=== PATIENT | male | born 1995 | race Caucasian/White ===

== ENCOUNTER 2018-09-12 16:50 | Emergency (ER) | payer BC ==
[~2018-09-12 16:50] MED LIST changes: -PRED20TA6 PO
[2018-09-12 16:55] VITALS: BP 160/92
--- NOTE | 2018-09-12 17:28 | ER Report ---
History and Physical Time Seen By MD: 17:00 Hx. of Stated Complaint: LOW PLATELET COUNT. PETECHAIE AND NOSEBLEEDS SINCE YESTERDAY. HPI/ROS CHIEF COMPLAINT: low platelets, nosebleed HISTORY OF PRESENT ILLNESS: pt has hx of autoimmune hemolytic anemia, itp in 2016, who has had no recent illnesses or trauma, and noted petechiae that began yesterday on arms with expansion today throughout trunk and arms, as well as mild epistaxis. Last episode 90 min ago; epistaxis is mild and easily controlled and not currently present. 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 Pt denies uri symptoms, fever, chills, sob, cp, vomiting, bloody/black stool, hematuria, or other emergent symptoms. REVIEW OF SYSTEMS: Constitutional: No fever, no chills. Eyes: No discharge. ENT: No sore throat. Cardiovascular: No chest pain, no palpitations. Respiratory: No cough, no shortness of breath. Gastrointestinal: No abdominal pain, no vomiting. Genitourinary: No hematuria. Musculoskeletal: No back pain. Skin: above Neurological: No headache. Remainder of the 14 system rev: Yes Allergies: Coded Allergies: milk (Verified Adverse Reaction, Mild, ABDOMINAL PAIN., 12/03/15) Home Meds Discontinued Reported Medications Penicillin V Potassium (PENICILLIN V POTASSIUM) 250 Mg Tablet, PO DAILY PRN for NO SPLEEN 12/03/15 Discontinued Scripts Ondansetron (ZOFRAN ODT) 4 Mg Tab.rapdis, 4 MG PO Q6H PRN for NAUSEA/VOMITING, #20 TAB 0 Refills Prov:AVNI NOVAK MD 12/03/15 Albuterol Sulfate (VENTOLIN HFA) 18 Gm Inh, 2 PUFF INH Q4-6H PRN for WHEEZING, #1 INH 0 Refills Prov:AVNI NOVAK MD 12/03/15 Oseltamivir Phosphate (TAMIFLU) 75 Mg Cap, 75 MG PO BID, #10 CAP 0 Refills Prov:AVNI NOVAK MD 12/03/15 Reviewed Nurses Notes: Yes Old Medical Records Reviewed: Yes Hx Smoking: No Hx Substance Use Disorder: No Constitutional Vital Sign - Last 24 Hours 09/12/18 16:55 Temp 99.6 Pulse 90 Resp 20 B/P (MAP) 160/92 Pulse Ox 96 O2 Delivery Room Air Physical Exam General Appearance: The patient is alert, has no immediate need for airway protection and no signs of toxicity. Eyes: Pupils equal and round no pallor or injection. ENT, Mouth: Mucous membranes are moist. No petechiae Respiratory: There are no retractions, lungs are clear to auscultation. Cardiovascular: Regular rate and rhythm. Gastrointestinal: Abdomen is soft and non tender, no masses, bowel sounds normal. Neurological: alert, oriented, nad Skin: petechiae on trunk, arms, wally flexor surfaces, legs. No active bldg Musculoskeletal: Extremities are nontender, nonswollen and have full range of motion. DIFFERENTIAL DIAGNOSIS: After history and physical exam differential diagnosis was considered for hematologic/oncologic causes of thrombocytopenia. Medical Decision Making ED Course/Re-evaluation ED Course Pt presents with petechiae, mild epistaxis that resolved spontaneously. Findings c/w isolated thrombocytopenia without e/o TTP or pancytopenia. Pt is borderline for meeting admission criteria; I consulted hematology; Dr. Jenkins agreed that pt may meet criteria but reasonable for d/c if he wishes not to be admitted. Pt understands this and he requests discharge. This is not unreasonable; pt administered prednisone 60mg in agreement with Dr. Jenkins; I have called oncology clinic and pt is aware to call tomorrow for f/u. He understands to rtn for any bleeding. Decision to Disposition Date: Sep 12, 2018 Decision to Disposition Time: 17:54 Depart Departure Latest Vital Signs Vital Signs Date Time Temp Pulse Resp B/P (MAP) Pulse Ox O2 Delivery O2 Flow Rate FiO2 09/12/18 16:55 99.6 90 20 160/92 96 Room Air Impression: Primary Impression: Thrombocytopenia Condition: Improved Disposition: HOME OR SELF-CARE New Scripts Prednisone (PREDNISONE) 20 Mg Tablet 60 MG PO QDAY for 3 Days, #9 TAB Prov: ELVIS MERA MD 09/12/18 Patient Instructions: Immune Thrombocytopenia (ED) Additional Instructions: As we discussed; return immediately for concerning or uncontrolled bleed, or any concerns. I have contacted the oncology center, but I also recommend you call in the morning at [phone] for evaluation and repeat blood counts. ELVIS MERA MD Sep 12, 2018 17:28
[2018-09-12] MEDS ORDERED: predniSONE 20 MG TAB PO ONE (17:45)
[2018-09-12] MEDS ORDERED: PRED20TA6 PO (18:02)
== END 2018-09-12 18:23 | disposition home or self-care (01) ==
LOC: ER 16:55
DX: D69.6 Thrombocytopenia, unspecified (principal)
CPT/HCPCS: 99283; J7512

== ENCOUNTER → 2018-09-12 | Outpatient (CLI) | payer BC ==
[~2018-09-12] MED LIST: ALB18R INH; ONDA4TAB PO; OSE75 PO; PENI-22 PO; PRED20TA6 PO
[2018-09-12 16:20] LABS: PLATELET COUNT, AUTOMATED 8 K/uL (150-450)
== END ==
LOC: LAB 15:45
PROVIDERS: ATTEND Internal Medicine Hematology & Oncology
DX: D69.6 Thrombocytopenia, unspecified (principal)
CPT/HCPCS: 36415; 85025

== ENCOUNTER 2018-11-19 08:30 | Outpatient (RCR) | payer BC ==
[2018-09-13 15:11] VITALS: BP 148/95
[2018-09-13 16:02] LABS: PLATELET COUNT, AUTOMATED 12 K/uL (150-450)
--- NOTE | 2018-09-14 22:55 | ONCOLOGY CONSULTATION ---
EVENT DATE: September 13, 2018 CHIEF COMPLAINT ITP. HISTORY OF PRESENT ILLNESS Patient is a 23-year-old male who was seen today as a work-in with recurrent ITP. He was seen in the Emergency Room yesterday and found to have a platelet count of 8000. The remainder of his CBC was normal. He also noted the onset of petechiae and had an episode of epistaxis. He was started on prednisone 60 mg daily last night. Today, he presents and still has petechiae, but no further bleeding. He has noted no hematuria and no purpura. He does complain of fatigue and that his bones have been "achy," but otherwise feels well. He will be graduating in September from the [employer]. HEMATOLOGY HISTORY Patient presents with a history of multiple autoimmune issues beginning in 1999. 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 He was treated with Cellcept as well as Rituxan. He underwent splenectomy in December 2013. He was noted to have neutropenia in 2012 which resolved. He was then diagnosed with ITP in 2015. This was treated with prednisone, Nplate, and Rituxan. ITP has been quiescent since 2016. He also mentions DVT, likely related to previous Port-A-Cath, in 1999 and again in 2013. MEDICAL HISTORY 1. Autoimmune hemolytic anemia. Four episodes occurring in 1999, 2007, 2011 and 2013. 2. ITP, 2015. 3. DVT, 1999 and 2013. 4. Depression. 5. Asthma. SURGICAL HISTORY Splenectomy, December 2013. FAMILY HISTORY Mother had lupus and other autoimmune issues. Maternal grandmother had an unknown cancer. Maternal grandfather had an DE. Brother has hemolytic anemia. SOCIAL HISTORY Patient is single. He has a supportive girlfriend. He will be graduating in September from the [employer] in [employer] and has a job awaiting him at the [employer] in October 2018. He does not smoke cigarettes. He drinks alcohol occasionally. MEDICATIONS Prednisone 60 mg daily. ALLERGIES No known drug allergies. Allergic to MILK. PHYSICAL EXAMINATION VITAL SIGNS: Weight 185.4 pounds. BP 148/85, P 86, R 16, temp 97.9, O2 sat 96%. GENERAL: Patient is a well-developed, well-nourished male in no acute distress. HEAD: Normocephalic, atraumatic. EYES: Sclerae anicteric. MOUTH: Moist mucous membranes. No bleeding evident, although patient "tastes blood" in the back of his throat. NECK: Supple. No adenopathy. LUNGS: Clear bilaterally. CARDIOVASCULAR: Heart rate regular, 86 per minute, without murmur, S3, or S4. ABDOMEN: Soft, nontender, with active bowel sounds. No organomegaly. EXTREMITIES: No edema. NEUROLOGIC: Nonfocal. SKIN: Petechiae over extremities and trunk. LABORATORY CBC today reveals a WBC of 10.2, hemoglobin 16.9, hematocrit 50.7, platelets 12,000. IMPRESSION AND PLAN The patient is a 23-year-old male with a history of autoimmune issues including autoimmune hemolytic anemia (four episodes), neutropenia, deep venous thrombosis, and most recently immune thrombocytopenic purpura, first noted in 2015, now with current immune thrombocytopenic purpura. 1. Immune thrombocytopenic purpura. Patient is very familiar with this. At this point, we will continue prednisone 60 mg daily for the next 10 days. He will be seen again in followup next week for further evaluation. He is planning to be gone for the and then will be graduating from college in September, so we will reevaluate other options with Rituxan and Nplate based on his schedule. CBC will be drawn in [place] over the . 2. Patient is instructed to notify us or present to the Emergency Room if he develops further bleeding or excessive bruising. 3. Follow up with Dr. Epps in one week for continued care. MIGUEL
[2018-09-20 11:37] VITALS: BP 148/84
[2018-09-20 12:21] LABS: PLATELET COUNT, AUTOMATED 17 K/uL (150-450)
[2018-09-22 15:17] LABS: PLATELET COUNT, AUTOMATED 28 K/uL (150-450)
--- NOTE | 2018-09-22 21:56 | ONCOLOGY FOLLOW UP NOTE ---
EVENT DATE: September 22, 2018 REASON FOR FOLLOWUP 1. History of autoimmune hemolytic anemia. 2. ITP. 3. History of recurrent DVT. INTERIM HISTORY Nixon returns to clinic for a followup visit today. Since his initial visit, he has been taking prednisone daily at home. He has had no further episodes of epistaxis. His petechiae are improving, and he has had no new bruising. He reports no melena, hematochezia, or hematuria. He is currently studying for [employer]. The prednisone has caused some insomnia which has actually been helpful for his studying. He has had followup blood drawn, and he is here to review the results. PAST MEDICAL HISTORY 1. History of autoimmune hemolytic anemia, four episodes occurring in 1999, 2007, 2011, and 2013. 2. ITP diagnosed in 2015. 3. History of DVT in 1999 and 2013. 4. Depression. 5. History of asthma. PAST SURGICAL HISTORY Status post splenectomy in December 2013. CURRENT MEDICATIONS Prednisone 60 mg p.o. daily. SOCIAL HISTORY Patient is single. He is attending [employer] and will be graduating in September. He has a girlfriend. He does not smoke and drinks only occasionally. FAMILY HISTORY There is a history of systemic lupus erythematosus in his mother. His maternal grandmother had an unknown cancer. His maternal grandfather had a [place]. His brother has hemolytic anemia, remarkably. VITAL SIGNS Temperature is 98.8, blood pressure 166/92, heart rate is 100, respirations 14, oxygen saturation is 92% on room air. PHYSICAL EXAMINATION GENERAL: Patient is alert and oriented times three, no apparent distress, sitting in the exam room chair. He appears quite healthy. He is in good spirits. HEENT: Anicteric sclerae. NEUROLOGIC: Grossly nonfocal, and his gait is normal. SKIN: No concerning rash or lesion. Petechiae are barely visible. EXTREMITIES: No edema, clubbing, or cyanosis. There is no erythema or tenderness to palpation. LABORATORY STUDIES Unfortunately, his initial CBC has clotted today. Labs are being redrawn. ASSESSMENT AND PLAN 1. 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 I had a good visit with Nixon today. We spent time reviewing his remarkable hematologic history. He has received multiple modalities of treatment for both his history of autoimmune hemolytic anemia as well as idiopathic thrombocytopenic purpura. Most recently, he had presented with a single digit platelet count, and he was appropriately started on prednisone. His platelet count has started to rise, and his bleeding symptoms have improved. His labs from today, unfortunately, will need to be redone, but we will let him know of these results. We spent time discussing his experience to date with prednisone and that the utility of the drug has been somewhat variable per his history. He does not like being on the prednisone for the most part, and he has had a favorable response to rituximab in the past. I have recommended that he strongly consider receiving four weekly doses of rituximab in an effort to get him off of the prednisone and to try to hold his idiopathic thrombocytopenic purpura under control as had been the case before. Nixon strongly favors this option as well. Orders will be placed for the rituximab to start as soon as possible. He is beginning a new job at the beginning of the year 2019. 2. We moved on to discuss the possibility of an underlying antiphospholipid antibody syndrome. With his history of recurrent thrombosis as well as idiopathic thrombocytopenic purpura and autoimmune hemolytic anemia, this certainly remains a possibility. He does not have any other rheumatologic diagnoses to date, but his mother does have a history of lupus, and his brother has a history of hemolytic anemia, remarkably. We will run a workup for antiphospholipid syndrome, and I have also recommended that he have a repeat HIV test done. He agrees to all of this. 3. He will continue to have followup here with frequency depending on his platelet count. He will likely be able to begin his rituximab infusions in the next two weeks. I spent a total of 30 minutes of time face to face with the patient today, and 25 minutes of this were spent in direct counseling and coordination of care. MIGUEL
[2018-09-24 14:11] VITALS: BP 146/104
[2018-10-01 10:59] VITALS: BP 156/105
[2018-10-01] MEDS: ACETAMINOPHEN 325 MG TAB PO PRN (11:27)
[2018-10-01] MEDS: LIDOCAINE/SOD BICARB 8.4% SYR ID PRN (11:28)
--- NOTE | 2018-10-02 16:20 | ONCOLOGY FOLLOW UP NOTE ---
EVENT DATE: October 01, 2018 CHIEF COMPLAINT Followup for ITP. HISTORY OF PRESENT ILLNESS Patient is a 23-year-old male who was seen today in followup for known ITP. He also has a history of autoimmune hemolytic anemia as well as recurrent DVT. He presents for his first cycle of rituximab, and the plan is to treat him weekly for four cycles. He continues on prednisone 60 mg daily. He is struggling some with mood changes and mild insomnia, but overall is managing fairly well. Workup for antiphospholipid antibody syndrome was negative. HEMATOLOGY HISTORY Patient presents with a history of multiple autoimmune issues beginning in 1999. 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 He was treated with Cellcept as well as Rituxan. He underwent splenectomy in December 2013. He was noted to have neutropenia in 2012 which resolved. He was then diagnosed with ITP in 2015. This was treated with prednisone, Nplate, and Rituxan. ITP has been quiescent since 2015. He has also had two episodes of DVT, likely related to previous Port-A-Cath, in 1999 and again in 2013. MEDICAL HISTORY 1. Autoimmune hemolytic anemia. Four episodes occurring in 1999, 2007, 2011 and 2013. 2. ITP, 2015. 3. DVT, 1999 and 2013. 4. Depression. 5. Asthma. SURGICAL HISTORY Splenectomy, December 2013. FAMILY HISTORY Mother had lupus and other autoimmune issues. Maternal grandmother had an unknown cancer. Maternal grandfather had an MA. Brother has hemolytic anemia. SOCIAL HISTORY Patient is single. He has a supportive girlfriend. He will be graduating in September from the [employer] in [employer] and has a job awaiting him at the [employer] in October 2018. He does not smoke cigarettes. He drinks alcohol occasionally. MEDICATIONS Prednisone 60 mg daily. ALLERGIES No known drug allergies. Allergic to MILK. REVIEW OF SYSTEMS A 12-point review of systems is performed and is negative except as stated above. He has had no recent petechiae, bleeding, or bruising. PHYSICAL EXAMINATION VITAL SIGNS: Weight 83.1 kg. BP 156/105, P 88, R 16, temp 97.6. GENERAL: Patient is a well-developed, well-nourished male in no acute distress. HEAD: Normocephalic, atraumatic. EYES: Sclerae anicteric. MOUTH: Moist mucous membranes. LUNGS: Clear bilaterally. CARDIOVASCULAR: Heart rate regular, 88 per minute, without murmur, S3, or S4. EXTREMITIES: No edema. Resolving bruising noted on lower extremities. NEUROLOGIC: Nonfocal. SKIN: No petechiae or further bruising. LABORATORY CBC today reveals a WBC of 17.3, hemoglobin 15.9, hematocrit 48.6, platelets 441,000. CMP is within normal limits. IMPRESSION AND PLAN The patient is a 23-year-old male with recent exacerbation of immune thrombocytopenic purpura. He also has a history of autoimmune hemolytic anemia as well as deep venous thrombosis. 1. Immune thrombocytopenic purpura. Rituxan 375 mg/m2 IV today. He will receive this weekly for four total treatments. He continues on prednisone 60 mg daily. As his platelet count has increased significantly from 28,000 to 441,000, will decrease prednisone to 50 mg daily. CBC will be checked with each treatment for further steroid reduction pending results. 2. ? Glover syndrome. Dr. Epps had considered possible Glover syndrome due to his hemolytic anemia, ITP, and clotting. However, workup for antiphospholipid antibody syndrome was negative. 3. Blood pressure. Blood pressure today is elevated. He states that this has been worked up previously. He finds that it is "always high" in a clinic situation. Will continue to monitor. 4. Follow up in one week for cycle #2 of treatment. He will see Dr. Epps on 10/20/18 before cycle #4 of treatment. MTDD
[2018-10-08 10:31] VITALS: BP 163/100
[2018-10-08] MEDS: ACETAMINOPHEN 325 MG TAB PO PRN (11:14)
[2018-10-08] MEDS: diphenhydrAMINE 50 MG/ML VIAL IVP PRN (11:18)
[2018-10-08 15:07] VITALS: BP 132/85
[2018-10-15 10:36] VITALS: BP 158/94
[2018-10-15] MEDS: ACETAMINOPHEN 325 MG TAB PO PRN (11:19)
[2018-10-15] MEDS: diphenhydrAMINE 50 MG/ML VIAL IVP PRN (11:20)
[2018-10-20 15:24] VITALS: BP 162/87
--- NOTE | 2018-10-20 21:00 | ONCOLOGY FOLLOW UP NOTE ---
EVENT DATE: October 20, 2018 REASON FOR FOLLOWUP 1. ITP. 2. History of autoimmune hemolytic anemia. 3. History of recurrent DVT. INTERIM HISTORY Nixon returns to clinic for a followup visit today. Since the last time we met, he has been doing quite well. He remains on prednisone 40 mg p.o. daily. He anticipates going down to 30 mg p.o. daily later this week. He has finished three of four planned rituximab infusions. These have gone well. He reports no shortness of breath, chest pain, or lightheadedness. He has had no fever or productive cough. He has had a good appetite, and his weight has been stable. He has had no abnormal bruising or bleeding. PAST MEDICAL HISTORY 1. History of autoimmune hemolytic anemia, four episodes occurring in 1999, 2007, 2011, and 2013. 2. ITP diagnosed in 2015. 3. History of DVT in 1999 and 2013. 4. Depression. 5. History of asthma. PAST SURGICAL HISTORY Status post splenectomy in December 2013. SOCIAL HISTORY Patient is single. He is attending [employer] and will be graduating in September. He has a girlfriend. He does not smoke and drinks only occasionally. FAMILY HISTORY There is a history of systemic lupus erythematosus in his mother. His maternal grandmother had an unknown cancer. His maternal grandfather had a ID. His brother has hemolytic anemia, remarkably. CURRENT MEDICATIONS Prednisone 40 mg p.o. daily. VITAL SIGNS Temperature is 98.0, blood pressure 162/87, heart rate is 89, respirations 16, oxygen saturation is 98% on room air. Weight is 86.8 kg. PHYSICAL EXAMINATION GENERAL: Patient is alert and oriented times three, no apparent distress, sitting in the exam room chair. He appears quite healthy. He is interactive and pleasant. HEENT: Anicteric sclerae. NEUROLOGIC: Grossly nonfocal, and his gait is normal. SKIN: No concerning rash or lesion. EXTREMITIES: No edema, clubbing, or cyanosis. There is no erythema or tenderness to palpation. LABORATORY STUDIES Reviewed per the [facility] record. ASSESSMENT AND PLAN Idiopathic thrombocytopenic purpura. I had a good visit with Nixon today. Symptomatically, he continues to do remarkably well. He is tired of being on the prednisone, however, as it is affecting his sleep and making him somewhat irritable. As discussed, would anticipate him being able to go down by 10 mg p.o. daily each week in the coming month. He has done well with rituximab. His platelet count has normalized. He has no concerning signs or symptoms to suggest recurrent thrombosis. We spent time discussing our ongoing strategy for surveillance. He will have weekly CBCs until his prednisone is complete, and then he will move to CBCs to be performed once a month, likely in [place] where he will be taking a new job in the next few days. I will plan to have him back for followup in six months or sooner if there are questions or concerns. MIGUEL
[2018-10-22 10:38] VITALS: BP 166/94
[2018-10-22] MEDS: ACETAMINOPHEN 325 MG TAB PO PRN (11:26)
[2018-10-22] MEDS: diphenhydrAMINE 50 MG/ML VIAL IVP PRN (11:26)
[2018-10-22] MEDS: LIDOCAINE/SOD BICARB 8.4% SYR ID PRN (11:58)
[2018-10-22 14:52] VITALS: BP 139/82
[2018-11-08 12:15] VITALS: BP 140/91
[2018-11-08 12:37] LABS: PLATELET COUNT, AUTOMATED 384 K/uL (150-450)
[2018-11-12 10:20] VITALS: BP 149/92
[2018-11-12 10:35] LABS: PLATELET COUNT, AUTOMATED 365 K/uL (150-450)
[~2018-11-19] VITALS: Ht 176.5 cm; Wt 85.4 kg
[~2018-11-19 08:30] MED LIST changes: +DEXTROSE 5%(*) 100 ML BAG 100 ML IVPB PRN; +NS(*) 0.9% 100 ML BAG 100 ML IVPB PRN; +PRED20TA6 PO; +RITUXIMAB IV ONE; +[UNRECOGNIZED DRUG - OTHER] IV ONE; +diphenhydrAMINE 25 MG CAP PO PRN; +diphenhydrAMINE 50 MG/ML VIAL IVP PRN
[2018-11-19 08:51] VITALS: BP 134/94
[2018-11-19 09:07] LABS: PLATELET COUNT, AUTOMATED 346 K/uL (150-450)
--- NOTE | 2018-11-23 02:31 | ONCOLOGY FOLLOW UP NOTE ---
November 22, 2018 [facility] [address] [place] [id number] RE: Gerald Cruz : 1995 To Whom It May Concern: I am writing on behalf of my patient, Gerald Cruz, to document the medical necessity of rituximab for the treatment of ITP. This letter provides information about the patient's medical history and diagnosis and a statement summarizing my treatment rationale. Patient is a 23-year-old male who was seen in August 2018 with recurrent ITP. He presented to the emergency room with a platelet count of 8000. He had several episodes of epistaxis with the onset of petechiae. He was started on prednisone 60 mg daily and platelet count improved minimally to 12,000. He has a history of multiple autoimmune issues beginning in 1999. He was noted to have autoimmune hemolytic anemia in 1999, 2007, 2011, and 2013. He was treated with CellCept as well as Rituxan. He underwent splenectomy in December 2013. He was then diagnosed with ITP in 2015. This was treated with prednisone, Nplate, and Rituxan. ITP had been quiescent since 2015, but recurred again in August 2018. He previously felt that his response was best from rituximab giving him the longest duration of benefit. This was ordered to be given weekly for four weeks. Since that time, his platelet count has continued to improve on a steroid taper. We remain hopeful that this will control his ITP. Most recent platelet count on 11/19/2018 was 346,000 and has been stable since starting the rituximab in September 2018. In summary, the rituximab is medically necessary for this patient's medical condition. Please contact me if any further information is required to ensure prompt approval of the rituximab. Sincerely, MIGUEL
== END 2018-11-24 08:58 | disposition home or self-care (01) ==
LOC: SPU 08:30
PROVIDERS: ATTEND Nurse Practitioner
DX: D69.6 Thrombocytopenia, unspecified (principal); Z86.718 Personal history of other venous thrombosis and embolism; Z86.2 Personal history of diseases of the blood and blood-forming organs and certain disorders involving the immune mechanism; F32.9 Major depressive disorder, single episode, unspecified; J45.909 Unspecified asthma, uncomplicated; R03.0 Elevated blood-pressure reading, without diagnosis of hypertension
CPT/HCPCS: 36415; 83516; 83615; 85025; 85027; 85610; 85613; 85730; 86146; 86147; 86148; 86703; 86704; 87340; 96375; 96413; 96415; 99212; J1200; J7030; J9310; Q0163; 82040; 82247; 82310; 82374; 82435; 82565; 82947; 84075; 84132; 84155; 84295; 84450; 84460; 84520

== ENCOUNTER 2019-02-16 15:00 | Outpatient (RCR) | payer BC ==
[2018-12-09 10:39] VITALS: BP 128/87
[2018-12-09 11:16] LABS: PLATELET COUNT, AUTOMATED 346 K/uL (150-450)
--- NOTE | 2018-12-09 15:33 | ONCOLOGY FOLLOW UP NOTE ---
EVENT DATE: December 09, 2018 CHIEF COMPLAINT Followup for ITP and recent rash. HISTORY OF PRESENT ILLNESS The patient is a 23-year-old male who was seen today as a work-in. He continues on prednisone 5 mg daily, which he has been on for the past three weeks. He denies any issues with bleeding or bruising. He presents today with a maculopapular, slightly erythematous rash over his face. It is mildly pruritic. He states he has had this in the past, but does not remember what it was from or what was done about it. Otherwise, he feels well and denies any new complaints. HEMATOLOGY HISTORY Patient presents with a history of multiple autoimmune issues beginning in 1999. 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 He was treated with CellCept as well as Rituxan. He underwent splenectomy in December 2013. He was noted to have neutropenia in 2012 which resolved. He was then diagnosed with ITP in 2015. This was treated with prednisone, Nplate, and Rituxan. ITP has been quiescent since 2015. He has also had two episodes of DVT, likely related to previous Port-A-Cath, in 1999 and again in 2013. Received four cycles of weekly Rituxan in September 2018. MEDICAL HISTORY 1. Autoimmune hemolytic anemia. Four episodes occurring in 1999, 2007, 2011 and 2013. 2. ITP, 2015 and 2017. 3. DVT, 1999 and 2013. 4. Depression. 5. Asthma. SURGICAL HISTORY Splenectomy, December 2013. FAMILY HISTORY Mother had lupus and other autoimmune issues. Maternal grandmother had an unknown cancer. Maternal grandfather had an [place]. Brother has hemolytic anemia. SOCIAL HISTORY Patient is single. He has a supportive girlfriend. He graduated in September from the [employer] in [employer] and and now works at the [employer] in October 2018. He does not smoke cigarettes. He drinks alcohol occasionally. MEDICATIONS Prednisone 5 mg daily. ALLERGIES No known drug allergies. Allergic to MILK. REVIEW OF SYSTEMS A 12-point review of systems is performed and is negative except as stated above. PHYSICAL EXAMINATION VITAL SIGNS: BP 128/86, P 76, R 16, temp 96.9, O2 sat 95%. GENERAL: Patient is a well-developed, well-nourished male in no acute distress. HEAD: Normocephalic, atraumatic. EYES: Sclerae anicteric. MOUTH: Moist mucous membranes. CARDIOVASCULAR: Heart rate regular, 76 per minute, without murmur, S3, or S4. LUNGS: Clear bilaterally. EXTREMITIES: No edema. NEUROLOGIC: Nonfocal. SKIN: Mildly erythematous maculopapular rash over face. No evidence of acute infection. LABORATORY CBC today reveals a WBC of 4.5, hemoglobin 15.5, hematocrit 48.4, platelets 346,000. CMP is within normal limits. IMPRESSION The patient is a 23-year-old male with a history of hemolytic anemia, idiopathic thrombocytopenic purpura, and deep vein thrombosis. Received weekly Rituxan for four cycles in September 2018 with continued prednisone taper. PLAN 1. ITP. Platelet count today is 346,000. He is currently on prednisone 5 mg daily. He will discontinue this at this time. 2. Rash. Presents with a maculopapular rash over face. He states he has had this in the past, but was unsure of its origin, and it "went away." I recommended a trial of hydrocortisone cream. He will notify us if this does not improve. 3. CBC and CMP at the end of December or early January. He will do this at a clinic in [place], and results will be faxed to Dr. Epps. 4. Follow up with Dr. Epps on 04/20/19 for continued care or earlier if there is a problem. MIGUEL
[2019-01-28 10:07] VITALS: BP 163/72
[2019-01-28 10:19] LABS: PLATELET COUNT, AUTOMATED 466 K/uL (150-450)
[2019-02-04 16:07] VITALS: BP 147/91
[2019-02-04 16:23] LABS: PLATELET COUNT, AUTOMATED 352 K/uL (150-450)
[~2019-02-16 15:00] MED LIST changes: -DEXTROSE 5%(*) 100 ML BAG 100 ML IVPB PRN; -NS(*) 0.9% 100 ML BAG 100 ML IVPB PRN; -RITUXIMAB IV ONE; -[UNRECOGNIZED DRUG - OTHER] IV ONE; -diphenhydrAMINE 25 MG CAP PO PRN; -diphenhydrAMINE 50 MG/ML VIAL IVP PRN
[2019-02-16 15:19] VITALS: BP 146/91
[2019-02-16] MEDS ORDERED: APIX5TAB4 PO (15:19)
[2019-02-16 16:32] LABS: PLATELET COUNT, AUTOMATED 390 K/uL (150-450)
--- NOTE | 2019-03-02 04:07 | ONCOLOGY FOLLOW UP NOTE ---
EVENT DATE: February 16, 2019 REASON FOR FOLLOWUP 1. Venous thromboembolism. 2. History of ITP. 3. History of autoimmune hemolytic anemia. INTERIM HISTORY Nixon returns to clinic for a followup visit today. He reports that he has been feeling okay physically, but he does continue to be somewhat tired and frustrated with his hematologic situation. He remains on Eliquis, and he has had no abnormal bleeding. He reports ongoing but slow improvement in left-sided chest and shoulder discomfort. He has had no worsened shortness of breath, and in fact his breathing has improved. He denies fever. He has not yet seen Rheumatology, but he is scheduled to see Dr. Rivera soon. 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 He does plan to make a career switch when a job becomes available. REVIEW OF SYSTEMS Otherwise negative, and all systems are reviewed. PAST MEDICAL HISTORY 1. Autoimmune hemolytic anemia. Four episodes occurring in 1999, 2007, 2011 and 2013. 2. ITP, 2015 and 2017. 3. DVT, 1999 and 2013. 4. Depression. 5. Asthma. PAST SURGICAL HISTORY Splenectomy, December 2013. FAMILY HISTORY Mother had lupus and other autoimmune issues. Maternal grandmother had an unknown cancer. Maternal grandfather had an [place]. Brother has hemolytic anemia. SOCIAL HISTORY Patient is single. He has a supportive girlfriend. He graduated in September from the [employer] in [place] and and now works at the [employer] in October 2018. He does not smoke cigarettes. He drinks alcohol occasionally. CURRENT MEDICATIONS 1. Eliquis. 2. Albuterol p.r.n. 3. Paxil. ALLERGIES No known drug allergies. PHYSICAL EXAMINATION VITAL SIGNS: Temperature is 98.9, blood pressure 146/91, heart rate 81, respiration 16, oxygen saturation 95% on room air. Weight is 83.6 kg. GENERAL: Patient is alert and oriented x3, in no apparent distress, sitting in the exam room chair. He appears healthy. He is interactive and pleasant. HEENT: Anicteric sclerae. NEUROLOGIC: Grossly nonfocal. His gait is normal. SKIN: Exam reveals no concerning lesions, ecchymoses, or rash. EXTREMITIES: No edema, clubbing, or cyanosis. LABORATORY STUDIES Reviewed per the [facility] record. ASSESSMENT AND PLAN 1. Venous thromboembolism. I had a good visit with Nixon today. He continues on Eliquis for his venous thromboembolism. He has had ongoing but slow improvement in his symptoms. He has had no abnormal bleeding. He is feeling physically okay, but generally tired and frustrated, understandably. We discussed the plan moving forward for indefinite anticoagulation, but with close attention paid to his blood counts, given his history of autoimmune hemolytic anemia and idiopathic thrombocytopenic purpura. For the time being, both of these appear to be quiescent. He will follow up with Rheumatology soon. He does not have obvious symptoms to suggest an underlying rheumatologic disorder, and as discussed, I am not sure that he will chronically need to see Rheumatology. Nixon continues to work on future plans in terms of career change. He reports that the letter previously written to his employer was received. I have recommended that we continue to regularly follow his counts, especially given his ongoing anticoagulation. I will plan to see him back in the next three to six months, depending on laboratory values and concern for new symptoms. All questions answered today. 2. History of idiopathic thrombocytopenic purpura. Platelet count is currently normal, as above. 3. History of autoimmune hemolytic anemia. Hemoglobin is currently normal. As above. [facility]
== END 2019-03-08 ==
LOC: ONC 15:00
PROVIDERS: ATTEND Nurse Practitioner
DX: I82.90 Acute embolism and thrombosis of unspecified vein (principal); D69.3 Immune thrombocytopenic purpura; R21 Rash and other nonspecific skin eruption; D59.1 Other autoimmune hemolytic anemias; Z79.01 Long term (current) use of anticoagulants
CPT/HCPCS: 36415; 82040; 82247; 82310; 82374; 82435; 82565; 82947; 84075; 84132; 84155; 84295; 84450; 84460; 84520; 85025; 99212

== ENCOUNTER 2019-04-20 15:30 | Outpatient (RCR) | payer BC ==
[~2019-04-20 15:30] MED LIST changes: +APIX5TAB4 PO
[2019-04-20 15:59] VITALS: BP 143/83
[2019-04-20 16:37] LABS: PLATELET COUNT, AUTOMATED 376 K/uL (150-450)
--- NOTE | 2019-04-20 17:38 | ONCOLOGY FOLLOW UP NOTE ---
EVENT DATE: April 20, 2019 REASON FOR FOLLOWUP 1. Venous thromboembolism. 2. History of ITP. 3. History of autoimmune hemolytic anemia. INTERIM HISTORY Nixon returns to clinic for a followup visit. 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 He is mostly working by himself, and he does not have a lot of experience in this area, so it has been stressful. He reports no abnormal bleeding. He has had no fevers, chills, or sweats. His energy level is good. He has had no changes in bowel or bladder habits. He reports no severe epistaxis, and he has noted no melena or hematochezia. He has had blood drawn here in the clinic, and his results are currently pending. REVIEW OF SYSTEMS Otherwise negative, and all systems were reviewed. PAST MEDICAL HISTORY 1. Autoimmune hemolytic anemia. Four episodes occurring in 1999, 2007, 2011, and 2013. 2. ITP, 2015 and 2017. 3. DVT, 1999 and 2013. 4. Depression. 5. Asthma. PAST SURGICAL HISTORY Splenectomy December 2013. FAMILY HISTORY Mother had lupus and other autoimmune issues. Maternal grandmother had an unknown cancer. Maternal grandfather had an [place]. Brother has hemolytic anemia. SOCIAL HISTORY Patient is single. He has a supportive girlfriend. He graduated in September from the [employer] in [employer] and and now works at the [employer] in October 2018. He does not smoke cigarettes. He drinks alcohol occasionally. CURRENT MEDICATIONS 1. Eliquis. 2. Albuterol p.r.n. 3. Paxil. ALLERGIES No known drug allergies. VITAL SIGNS Temperature is 98.9, blood pressure 143/83, heart rate is 94, respirations 16, oxygen saturation is 93% on room air. Weight is 83.1 kg. PHYSICAL EXAMINATION GENERAL: Patient is alert and oriented times three, in no apparent distress, sitting in the exam room chair. He appears healthy. He is interactive and pleasant. HEENT: Anicteric sclerae. NEUROLOGIC: Grossly nonfocal, and his gait is normal. SKIN: No concerning rash or lesion. EXTREMITIES: No edema, clubbing, or cyanosis. There is no erythema or tenderness. LABORATORY STUDIES Currently pending, but prior CBCs have been stable without cytopenias. ASSESSMENT AND PLAN 1. Recurrent venous thromboembolism. Nixon continues to do quite well symptomatically. He has no concerning signs or symptoms to suggest recurrent thrombosis. He continues on Eliquis. He was able to find an internet link that has given him a very nice discount on the drug through the [employer]. He is happy about this. As discussed today, our plan will be for him to continue with indefinite anticoagulation given the recurrent nature of his thromboses. He understands this. The change in profession has been stressful for him, but it does pose drastically lower risk for physical harm while anticoagulated. 2. History of idiopathic thrombocytopenic purpura. There has been no recent recurrent thrombocytopenia. His labs are pending today, and we will get back in touch with him. 3. History of autoimmune hemolytic anemia. Again, his hemoglobin has been stable, and his labs are pending today. As above, will contact patient when available. All questions answered today. MIGUEL
== END 2019-05-18 09:48 | disposition home or self-care (01) ==
LOC: SPU 15:30
PROVIDERS: ATTEND Nurse Practitioner
DX: Z86.718 Personal history of other venous thrombosis and embolism (principal); Z79.01 Long term (current) use of anticoagulants
CPT/HCPCS: 36415; 85025; 99212